=== PATIENT | male | born 1955 | race Caucasian/White ===

== ENCOUNTER 2018-05-23 11:41 | Emergency (ER) | payer OTHER ==
[~2018-05-23] VITALS: Wt 75.6 kg
[~2018-05-23 11:41] MED LIST: FINA5TAB4 PO; TAMS0.4C2 PO
[2018-05-23 11:50] VITALS: BP 171/105; PULSE 112; RESP 16
--- NOTE | 2018-05-23 11:59 | ERD ---
ER Documentation Chief Complaint Chief Complaint URINE RETENTION, UNABLE TO URINATE HPI The patient is a 62-year-old presenting to the ER because he has been unable to urinate since 2 AM, heart similar symptom previously, denies fever, chills, neck pain, chest pain, abdominal pain, vomiting, diarrhea, constipation. He does not drink, smokes socially Past medical history: BPH, diabetes mellitus, hypertension Past surgical history: None ROS All systems reviewed and are negative except as per history of present illness. Medications Home Meds Active Scripts Tamsulosin Hcl* (Flomax*) 0.4 Mg Cap.er.24h, 0.4 MG PO DAILY, #14 CAP Prov:JAZ PAVON MD 05/23/18 Reported Medications Pravastatin Sodium* (Pravastatin Sodium*) 10 Mg Tablet, 10 MG PO HS, TAB 05/23/18 Sitagliptin* (Januvia*) 50 Mg Tablet, 50 MG PO DAILY, #30 TAB 05/23/18 Lisinopril* (Lisinopril*) 10 Mg Tablet, 10 MG PO DAILY, #30 TAB 05/23/18 Metformin Hcl* (Metformin Hcl*) 1,000 Mg Tablet, 1000 MG PO WITH BREAKFAST DINNE, #60 TAB 05/23/18 Finasteride* (Finasteride*) 5 Mg Tablet, 5 MG PO DAILY, TAB 12/01/13 Discontinued Reported Medications Tamsulosin Hcl* (Tamsulosin Hcl*) 0.4 Mg Cap.er.24h, 0.4 MG PO DAILY, CAP 12/01/13 Allergies Allergies: Coded Allergies: No Known Allergy (Unverified , 11/02/13) PMhx/Soc History of Surgery: No Anesthesia Reaction: No Hx Neurological Disorder: No Hx Respiratory Disorders: No Hx Cardiac Disorders: No Hx Psychiatric Problems: No Hx Miscellaneous Medical Probl: Yes ( RENTENTION) Hx Alcohol Use: No Hx Substance Use: No Hx Tobacco Use: No Physical Exam Vitals Vital Signs Date Temp Pulse Resp B/P (MAP) Pulse Ox O2 O2 Flow FiO2 Time Delivery Rate 05/23/18 97.0 112 16 171/105 98 11:50 (127) Physical Exam Const: No acute distress. Head: Atraumatic. Eyes: Normal Conjunctiva. ENT: Normal External Ears, Nose and Mouth. Neck: Full range of motion. No meningismus. Resp: Clear to auscultation bilaterally. Cardio: Regular rate and rhythm. Abd: Soft, distended urinary bladder, normal bowel sounds, non tender. Skin: No petechiae or rashes. Back: No midline or flank tenderness. Ext: No cyanosis, or edema. Neur: Awake and alert. No focal deficit Psych: Normal Mood and Affect. Results 24 hrs Laboratory Tests Test 05/23/18 12:15 05/23/18 12:28 Bedside Urine pH (LAB) 6.5 6.0 Bedside Urine Protein (LAB) Negative Negative Bedside Urine Glucose (UA) 0.50% 0.50% Bedside Urine Ketones (LAB) Negative Negative Bedside Urine Blood 1+ 2+ Bedside Urine Nitrite (LAB) Negative Negative Bedside Urine Leukocyte Esterase (L Negative Negative Procedures/MDM MEDICAL MAKING DECISION: The patient is a 62-year-old male, presenting with acute urinary retention, was treated with a Galdamez catheter that drained about 700 cc of urine with spontaneous relief. He is stable for outpatient follow-up. He was discharged with a leg bag The differential diagnoses considered include but are not limited to BPH, prostatitis, urethral stricture, kidney stones Departure Diagnosis: Primary Impression: Retention of urine Condition: Good Comments He was discharged with Flomax I discussed the findings with the patient. I advised the patient to follow-up with the on-call urologist Dr. Christian in about 2-3 days, sooner if needed and re turn if any concern. Disclaimer: Inadvertent spelling and grammatical errors are likely due to EHR/dictation software use and do not reflect on the overall quality of patient care. Also, please note that the electronic time recorded on this note does not necessarily reflect the actual time of the patient encounter. JAZ PAVON MD May 23, 2018 11:59
[2018-05-23] MEDS ORDERED: SITA50TA2 PO (12:21)
[2018-05-23] MEDS ORDERED: METF100010 PO (12:21)
[2018-05-23] MEDS ORDERED: PRAV10TA43 PO (12:21)
[2018-05-23] MEDS ORDERED: LISI10TA2 PO (12:21)
[2018-05-23] MEDS ORDERED: TAMS-14 PO (12:28)
== END 2018-05-23 13:22 | disposition home or self-care (01) ==
LOC: E/R 11:41
DX: R33.9 Retention of urine, unspecified (principal)
CPT/HCPCS: 51702; 81003; Z7502

== ENCOUNTER 2018-06-05 10:11 | Emergency (ER) | payer OTHER ==
[~2018-06-05] VITALS: Ht 167.6 cm; Wt 73.4 kg
[~2018-06-05 10:11] MED LIST changes: +LISI10TA2 PO; +METF100010 PO; +PRAV10TA43 PO; +SITA50TA2 PO; +TAMS-14 PO; -TAMS0.4C2 PO
[2018-06-05 10:17] VITALS: Ht 167.6 cm; Wt 73.4 kg
--- NOTE | 2018-06-05 11:20 | ERD ---
ER Documentation Chief Complaint Chief Complaint Complains of problems with sanchez cath Hx of prostate problems HPI This is a 62-year-old male who is here for Sanchez catheter change. The patient states he had a Sanchez catheter for 2 months. Is there because of BPH. He cannot see his urologist till August. I will refer him to urologist. He saying that he is urinating around the catheter ROS All systems reviewed and are negative except as per history of present illness. Medications Home Meds Active Scripts Tamsulosin Hcl* (Flomax*) 0.4 Mg Cap.er.24h, 0.4 MG PO DAILY, #14 CAP Prov:JAZ PAVON MD 05/23/18 Reported Medications Pravastatin Sodium* (Pravastatin Sodium*) 10 Mg Tablet, 10 MG PO HS, TAB 05/23/18 Sitagliptin* (Januvia*) 50 Mg Tablet, 50 MG PO DAILY, #30 TAB 05/23/18 Lisinopril* (Lisinopril*) 10 Mg Tablet, 10 MG PO DAILY, #30 TAB 05/23/18 Metformin Hcl* (Metformin Hcl*) 1,000 Mg Tablet, 1000 MG PO WITH BREAKFAST DINNE, #60 TAB 05/23/18 Finasteride* (Finasteride*) 5 Mg Tablet, 5 MG PO DAILY, TAB 12/01/13 Allergies Allergies: Coded Allergies: No Known Allergy (Unverified , 11/02/13) PMhx/Soc History of Surgery: No Anesthesia Reaction: No Hx Neurological Disorder: No Hx Respiratory Disorders: No Hx Cardiac Disorders: No Hx Psychiatric Problems: No Hx Miscellaneous Medical Probl: Yes (prostate problems) Hx Alcohol Use: No Hx Substance Use: No Hx Tobacco Use: No Smoking Status: Never smoker FmHx Family History: No coronary disease Physical Exam Vitals Vital Signs Date Temp Pulse Resp B/P (MAP) Pulse Ox O2 O2 Flow FiO2 Time Delivery Rate 06/05/18 98.5 132 20 131/81 96 10:17 (98) Physical Exam Const: No acute distress Head: Atraumatic Eyes: Normal Conjunctiva ENT: Normal External Ears, Nose and Mouth. Neck: Full range of motion. No meningismus. Resp: Clear to auscultation bilaterally Cardio: Regular rate and rhythm, no murmurs Abd: Soft, non tender, non distended. Normal bowel sounds, catheter in place Skin: No petechiae or rashes Back: No midline or flank tenderness Ext: No cyanosis, or edema Neur: Awake and alert Psych: Normal Mood and Affect Procedures/MDM We will change Sanchez catheter to a size larger. Will follow up with urologist Departure Diagnosis: Primary Impression: Complication of Sanchez catheter Encounter type: initial encounter Qualified Codes: T83.9XXA - Unspecified complication of genitourinary prosthetic device, implant and graft, initial encounter Additional Impression: Urinary catheter (Sanchez) change required Condition: Stable Patient Instructions: Sanchez Catheter, Care Referrals: SOPHIE HUFFMAN MD, APOSTOLOS A. DO Jun 05, 2018 11:20
[2018-06-05 12:04] VITALS: BP 135/78; PULSE 76; RESP 19
== END 2018-06-05 12:05 | disposition home or self-care (01) ==
LOC: E/R 10:11
DX: T83.9XXA Unspecified complication of genitourinary prosthetic device, implant and graft, initial encounter (principal); Y73.2 Prosthetic and other implants, materials and accessory gastroenterology and urology devices associated with adverse incidents; Z46.6 Encounter for fitting and adjustment of urinary device; Z79.84 Long term (current) use of oral hypoglycemic drugs
CPT/HCPCS: 51702; Z7502; Z7610

== ENCOUNTER 2018-07-03 09:56 | Emergency (ER) | payer OTHER ==
[~2018-07-03] VITALS: Ht 172.7 cm; Wt 73.6 kg
[2018-07-03 09:58] VITALS: Ht 172.7 cm; Wt 73.6 kg
[2018-07-03] MEDS ORDERED: CIPR500T4 PO ×2 (10:36→11:08)
--- NOTE | 2018-07-03 10:39 | ERD ---
ER Documentation Chief Complaint Chief Complaint wants sanchez cath removed HPI 62-year-old male presents the emergency part requesting to remove the Sanchez catheter. Patient had a Sanchez catheter in place for approximately a month for an episode of urinary retention. He reports no fevers or chills. He reports some foul- smelling urine from the catheter. He reports no flank pain or vomiting. Patient's been taking his prostate medications without difficulty. ROS All systems reviewed and are negative except as per history of present illness. Medications Home Meds Active Scripts Ciprofloxacin Hcl* (Ciprofloxacin Hcl*) 500 Mg Tablet, 500 MG PO BID for 7 Days, TAB Prov:TIFFANY JUDGE 07/03/18 Tamsulosin Hcl* (Flomax*) 0.4 Mg Cap.er.24h, 0.4 MG PO DAILY, #14 CAP Prov:JAZ PAVON MD 05/23/18 Reported Medications Pravastatin Sodium* (Pravastatin Sodium*) 10 Mg Tablet, 10 MG PO HS, TAB 05/23/18 Sitagliptin* (Januvia*) 50 Mg Tablet, 50 MG PO DAILY, #30 TAB 05/23/18 Lisinopril* (Lisinopril*) 10 Mg Tablet, 10 MG PO DAILY, #30 TAB 05/23/18 Metformin Hcl* (Metformin Hcl*) 1,000 Mg Tablet, 1000 MG PO WITH BREAKFAST DINNE, #60 TAB 05/23/18 Finasteride* (Finasteride*) 5 Mg Tablet, 5 MG PO DAILY, TAB 12/01/13 Allergies Allergies: Coded Allergies: No Known Allergy (Unverified , 11/02/13) PMhx/Soc History of Surgery: No Anesthesia Reaction: No Hx Neurological Disorder: No Hx Respiratory Disorders: No Hx Cardiac Disorders: No Hx Psychiatric Problems: No Hx Miscellaneous Medical Probl: Yes (prostate problems, DM) Hx Alcohol Use: No Hx Substance Use: No Hx Tobacco Use: Yes Smoking Status: Current every day smoker Physical Exam Vitals Vital Signs Date Temp Pulse Resp B/P (MAP) Pulse Ox O2 O2 Flow FiO2 Time Delivery Rate 07/03/18 97.7 100 19 152/76 96 09:58 (101) Physical Exam General: well developed, well nourished, in no distress. Neuro: Normal speech, gait, balance Abdomen: Soft, nontender, no distended bladder. : Indwelling Sanchez catheter, with drainage of cloudy smelling urine. Procedures/MDM Patient was taken to a room, seen and examined Medical decision m[age]-year-old male presents the emergency department for removal of his urinary catheter. After removal of the Sanchez catheter, he has been able to urinate. He has evidence of what appears to be a urinary tract infection related to the catheter I will be placing him on antibiotics. He appears comfortable and clinically well and is already taking medications for his prostate and appears appropriate for outpatient referral to urology. Departure Diagnosis: Primary Impression: Complication of Sanchez catheter Condition: Stable Patient Instructions: Urinary Retention, Male Referrals: SOPHIE HUFFMAN MD Additional Instructions: return here immediately for another catheter if you have trouble urinating TIFFANY JUDGE Jul 03, 2018 10:39
[2018-07-03 11:23] VITALS: BP 142/76; PULSE 76; RESP 16
== END 2018-07-03 11:35 | disposition home or self-care (01) ==
LOC: E/R 09:56
DX: T83.098A Other mechanical complication of other urinary catheter, initial encounter (principal); E11.9 Type 2 diabetes mellitus without complications; F17.210 Nicotine dependence, cigarettes, uncomplicated; Y73.2 Prosthetic and other implants, materials and accessory gastroenterology and urology devices associated with adverse incidents; Z79.84 Long term (current) use of oral hypoglycemic drugs
CPT/HCPCS: 81001; 87086; Z7502; 99283

== ENCOUNTER 2018-09-23 06:09 | Day surgery (SDC) | payer OTHER ==
[~2018-09-23] VITALS: Ht 172.7 cm; Wt 75.9 kg
[2018-09-23] VITALS (17 sets, daily range): BP systolic 119–152; BP diastolic 64–90; PULSE 72–94; RESP 10–23; Ht 172.7 cm; Wt 75.9 kg
[~2018-09-23 06:09] MED LIST changes: +CEFAZOLIN 2 GM/50 ML (PMX) 50 ML IVPB ONE; +CIPR500T4 PO; +SOD CHLORIDE 0.9% 1,000 ML IV SCH
[2018-09-23] MEDS ORDERED: ALBUTEROL 0.083% (NEB) 2.5 MG/3 ML AMP HHN STA (08:08)
--- NOTE | 2018-09-23 08:15 | PREAC ---
Date/Time of Note Date/Time of Note DATE: 09/23/18 TIME: 08:13 Anesthesia Eval and Record Evaluation Time Pre-Procedure Interview DATE: 09/23/18 TIME: 08:13 Age 62 Sex male NPO: 8 hrs Preoperative diagnosis right inguinal hernia Planned procedure inguinal hernia repair Past Medical History Past Medical History: Includes Cardio: HTN Endo: Diabetes Pulm: Smoking Hx Renal: BPH Surgery & Anesthesia Issues No known issue Meds Anticoagulation: No Beta Brian within 24 hr: No Reason Beta Brian not given: Pt. not on B-Brian Active Scripts Tamsulosin Hcl* (Flomax*) 0.4 Mg Cap.er.24h, 0.4 MG PO DAILY, #14 CAP Prov:JAZ PAVON MD 05/23/18 Reported Medications Sitagliptin* (Januvia*) 50 Mg Tablet, 50 MG PO DAILY, #30 TAB 05/23/18 Metformin Hcl* (Metformin Hcl*) 1,000 Mg Tablet, 1000 MG PO WITH BREAKFAST DINNE, #60 TAB 05/23/18 Finasteride* (Finasteride*) 5 Mg Tablet, 5 MG PO DAILY, TAB 12/01/13 Discontinued Reported Medications Pravastatin Sodium* (Pravastatin Sodium*) 10 Mg Tablet, 10 MG PO HS, TAB 05/23/18 Lisinopril* (Lisinopril*) 10 Mg Tablet, 10 MG PO DAILY, #30 TAB 05/23/18 Discontinued Scripts Ciprofloxacin Hcl* (Ciprofloxacin Hcl*) 500 Mg Tablet, 500 MG PO BID for 7 Days, TAB Prov:TIFFANY JUDGE 07/03/18 Ciprofloxacin Hcl* (Ciprofloxacin Hcl*) 500 Mg Tablet, 500 MG PO BID for 7 Days, TAB Prov:TIFFANY JUDGE 07/03/18 Current Medications Sodium Chloride 1,000 ml @ 75 mls/hr [id number] IV Last administered on 09/23/18at 07:35; Admin Dose 75 MLS/HR; Start 09/23/18 at 06:00; Stop 09/23/18 at 18:00 Meds reviewed: Yes Allergies Coded Allergies: No Known Allergy (Unverified , 09/23/18) Allergies Reviewed: Yes Labs/Studies Labs Reviewed: Reviewed by anesthesiologist test: N/A Pre-procedure Exam Last vitals Vital Signs Date Temp Pulse Resp B/P (MAP) Pulse Ox O2 O2 Flow FiO2 Time Delivery Rate 09/23/18 97.8 77 18 142/84 94 Room Air 06:59 (103) Airway: Adequate mouth opening, Adequate thyromental dist Mallampati: Mallampati III Teeth: Normal Lung: Normal Heart: Normal ASA Physical Status ASA physical status: 3 Emergency: None Pre-operative Attestations Prior to commencing anesthesia and surgery, the patient was re-evaluated, there was verification of: *The patient's identity *The results of appropriate recent lab work and preoperative vital signs *The above evaluation not changing prior to induction *Anesthetic plan, risk benefits, alternative and complications discussed with patient/family; questions answered; patient/family understands, accepts and wishes to proceed. MESSI ALANIS DO September 23, 2018 08:15
[2018-09-23] MEDS ORDERED: MIDAZOLAM 1 MG/ML 2 ML INJ ONE (08:20)
[2018-09-23] MEDS ORDERED: PROPOFOL 20 ML ONE (08:20)
[2018-09-23] MEDS ORDERED: LIDOCAINE 1% (MDV) 20 ML INJ ONE (08:21)
[2018-09-23] MEDS ORDERED: ROPIVACAINE 0.5 % 30 ML VIAL ONE (08:21)
[2018-09-23] MEDS ORDERED: ONDANSETRON 4 MG INJ ONE (08:26)
[2018-09-23] MEDS ORDERED: CEFAZOLIN 1 GM INJ ONE (08:26)
[2018-09-23] MEDS ORDERED: POLYMYXIN/BACITRACIN 1L IRRIG ONE (08:46)
[2018-09-23] MEDS ORDERED: EPHEDrine 25 MG/5 ML SYG ONE (08:55)
[2018-09-23] MEDS ORDERED: PHENYLephrine (100 MCG/ML) 10ML SYG ONE (08:56)
[2018-09-23] MEDS ORDERED: KETOROLAC 30 MG INJ ONE (09:21)
--- NOTE | 2018-09-23 09:35 | OPR ---
Date/Time of Note Date/Time of Note DATE: 09/23/18 TIME: 09:32 Operative Report Procedure Date: September 23, 2018 Preoperative Diagnosis incarcerated right inguinal hernia Postoperative Diagnosis same Operation/Procedure Performed open right incarcerated inguinal hernia repair with ultrapro plug hernia system mesh Surgeon see signature line 3D Designer none Anesthesia Type: general Estimated Blood Loss: 0 - 10 ml's Transfusion none Specimen none Grafts/Implants none Complications none Pt Condition Post Procedure: stable Indications This is a 62-year-old male with a right incarcerated inguinal hernia. He requires surgical repair. Risks alternatives benefits and personal were discussed the patient. Patient expressed understanding and consents to the operation. Procedure Description Patient is taken to the OR and prepped and draped in usual sterile fashion. Surgical time was performed. IV antibiotics given. Right inguinal oblique incision was made with the 10 blade. Dissection with cautery was carried down to the external oblique fascia. Externally fascia is open with a 15 blade. This incision was extended medial fairly lateral sparely with Metzenbaum scissors. Cord structures were identified and encircled with a Spray drain. Incarcerated indirect inguinal hernia was then identified and manually reduced. This area was then bolstered with the disc portion of the ultra pro hernia system mesh. The disc is secured in place the running 0 Prolene from the pubic tubercle along the shelving edge of inguinal ligament. Superiorly the disc is secured to enter oblique with interrupted 3-0 Vicryl. Onlay mesh was secured in a similar fashion with a running 0 Prolene from the pubic tubercle along the shelving single limit. Straps are created reapproximate around the cord struc tures to re-create the inguinal ring with interrupted 0 Prolene. Onlay mesh was secured to enter oblique with interrupted 3-0 Vicryl. Externally fascia is closed with running 3-0 Vicryl. Lisandro's fascia was closed with interrupted 3-0 Vicryl. Skin was closed using inzorb observable skin stapler. A tap block was provided by the anesthesiologist. Dry dressings were applied. Lakeisha OCHOA September 23, 2018 09:35
--- NOTE | 2018-09-23 09:51 | PAC ---
Date/Time of Note Date/Time of Note DATE: 09/23/18 TIME: 09:51 Post-Anesthesia Notes Post-Anesthesia Note Last documented vital signs Vital Signs Date Temp Pulse Resp B/P (MAP) Pulse Ox O2 O2 Flow FiO2 Time Delivery Rate 09/23/18 98.0 94 19 136/86 94 Nasal 3.0 09:38 (103) Cannula Activity: WNL Respiratory function: WNL Cardiovascular function: WNL Mental status: Baseline Pain reasonably controlled: Yes Hydration appropriate: Yes Nausea/Vomiting absent: Yes MESSI ALANIS DO September 23, 2018 09:51
[2018-09-23] MEDS ORDERED: HYDROCODONE/APAP (5/325) TAB PO ONE (10:00)
[2018-09-23] MEDS ORDERED: OXYCODONE/ACETAMINOPHEN (5/325) TAB PO ONE (10:30)
== END 2018-09-23 11:27 | disposition home or self-care (01) ==
LOC: SDS 06:09
PROVIDERS: ATTEND Surgery
DX: K40.90 Unilateral inguinal hernia, without obstruction or gangrene, not specified as recurrent (principal); I10 Essential (primary) hypertension; E11.9 Type 2 diabetes mellitus without complications
CPT/HCPCS: 49507; 82962; J0690; J1885; J2250; J2370; J2405; J2795; J3010; Z7610

== ENCOUNTER 2018-09-23 18:25 | Emergency (ER) | payer OTHER ==
[~2018-09-23] VITALS: Ht 175.3 cm; Wt 77.5 kg
[~2018-09-23 18:25] MED LIST changes: -CEFAZOLIN 2 GM/50 ML (PMX) 50 ML IVPB ONE; -SOD CHLORIDE 0.9% 1,000 ML IV SCH
[2018-09-23 18:31] VITALS: Ht 175.3 cm; Wt 77.5 kg
--- NOTE | 2018-09-23 18:58 | ERD ---
ER Documentation Chief Complaint Chief Complaint recent inguinal hernia sx this AM, urinary retention since 8AM w/ pain HPI 62-year-old male with a recent right inguinal hernia surgery this morning presenting with urinary retention. He was discharged prior to urinating. He does have a history of BPH. He is complaining of suprapubic discomfort that is constant with difficulty urinating. He is denying any dysuria or hematuria. No fevers or chills. No nausea or vomiting. He does complain of pain at his surgical site, which is expected. ROS All systems reviewed and are negative except as per history of present illness. Medications Home Meds Active Scripts Tamsulosin Hcl* (Flomax*) 0.4 Mg Cap.er.24h, 0.4 MG PO DAILY, #14 CAP Prov:JAZ PAVON MD 05/23/18 Reported Medications Sitagliptin* (Januvia*) 50 Mg Tablet, 50 MG PO DAILY, #30 TAB 05/23/18 Metformin Hcl* (Metformin Hcl*) 1,000 Mg Tablet, 1000 MG PO WITH BREAKFAST DINNE, #60 TAB 05/23/18 Finasteride* (Finasteride*) 5 Mg Tablet, 5 MG PO DAILY, TAB 12/01/13 Discontinued Reported Medications Pravastatin Sodium* (Pravastatin Sodium*) 10 Mg Tablet, 10 MG PO HS, TAB 05/23/18 Lisinopril* (Lisinopril*) 10 Mg Tablet, 10 MG PO DAILY, #30 TAB 05/23/18 Discontinued Scripts Ciprofloxacin Hcl* (Ciprofloxacin Hcl*) 500 Mg Tablet, 500 MG PO BID for 7 Days, TAB Prov:TIFFANY JUDGE 07/03/18 Ciprofloxacin Hcl* (Ciprofloxacin Hcl*) 500 Mg Tablet, 500 MG PO BID for 7 Days, TAB Prov:TIFFANY JUDGE 07/03/18 Allergies Allergies: Coded Allergies: No Known Allergy (Unverified , 09/23/18) PMhx/Soc History of Surgery: Yes (STONES REMOVED) Anesthesia Reaction: No Hx Neurological Disorder: No Hx Respiratory Disorders: No Hx Cardiac Disorders: No Hx Psychiatric Problems: No Hx Miscellaneous Medical Probl: No Hx Alcohol Use: No Hx Substance Use: No Hx Tobacco Use: Yes FmHx Family History: No diabetes Physical Exam Vitals Vital Signs Date Temp Pulse Resp B/P (MAP) Pulse Ox O2 O2 Flow FiO2 Time Delivery Rate 09/23/18 98.6 92 19 144/87 96 Room Air 19:30 (106) 09/23/18 90 16 141/87 94 Room Air 19:01 (105) 09/23/18 98.8 114 20 181/88 96 18:31 (119) Physical Exam Const: No acute distress Head: Atraumatic Eyes: Normal Conjunctiva ENT: Normal External Ears, Nose and Mouth. Neck: Full range of motion. No meningismus. Resp: Clear to auscultation bilaterally Cardio: Regular rate and rhythm, no murmurs Abd: Soft, suprapubic fullness with tenderness to palpation, no rebound or guarding. Normal bowel sounds. Surgical dressings clean, dry, intact Skin: No petechiae or rashes Back: No midline or flank tenderness Ext: No cyanosis, or edema Neur: Awake and alert Psych: Normal Mood and Affect Procedures/MDM Patient is presenting with urinary retention after surgery this morning. Vitals are unremarkable. Galdamez was placed with about a liter of urine output. Patient feels significantly better. He will be discharged with a Galdamez with instructions to follow-up in 1 week for removal. Return precautions were given. Galdamez care discussed. Patient's blood pressure was elevated (>120/80) but appears stable without evidence of hypertension emergency or urgency. The patient was counseled about the risks of hypertension and urged to pursue outpatient monitoring and therapy within a week with their primary care physician. Departure Diagnosis: Primary Impression: Retention of urine Condition: Stable EKSRIKANTH CLARK MD September 23, 2018 18:58
[2018-09-23 19:30] VITALS: BP 144/87; PULSE 92; RESP 19
== END 2018-09-23 19:47 | disposition home or self-care (01) ==
LOC: E/R 18:25
DX: R33.9 Retention of urine, unspecified (principal)
CPT/HCPCS: 51702; Z7502

== ENCOUNTER 2018-10-07 18:39 | Emergency (ER) | payer OTHER ==
[~2018-10-07] VITALS: Wt 72.6 kg
[~2018-10-07 18:39] MED LIST changes: -CIPR500T4 PO; -LISI10TA2 PO; -PRAV10TA43 PO
--- NOTE | 2018-10-07 21:38 | ERD ---
ER Documentation Chief Complaint Chief Complaint states decrease urine output in f/c. c/o pain HPI This is a 62-year-old male who presents for decreased urine output, he had a Galdamez catheter placed on September 23. He states that he has been having decreased emptying, he denies fever, he denies nausea or vomiting. Patient has a history of BPH, and he states that he has had the catheter removed in the ED before, and wishes for this to happen today. He denies any fever, denies nausea or vomiting. ROS All systems reviewed and are negative except as per history of present illness. Medications Home Meds Active Scripts Cephalexin* (Keflex*) 500 Mg Capsule, 500 MG PO QID for 7 Days, CAP Prov:INNA HAYNES MD 10/07/18 Tamsulosin Hcl* (Flomax*) 0.4 Mg Cap.er.24h, 0.4 MG PO DAILY, #14 CAP Prov:JAZ PAVON MD 05/23/18 Reported Medications Sitagliptin* (Januvia*) 50 Mg Tablet, 50 MG PO DAILY, #30 TAB 05/23/18 Metformin Hcl* (Metformin Hcl*) 1,000 Mg Tablet, 1000 MG PO WITH BREAKFAST DINNE, #60 TAB 05/23/18 Finasteride* (Finasteride*) 5 Mg Tablet, 5 MG PO DAILY, TAB 12/01/13 Allergies Allergies: Coded Allergies: No Known Allergy (Unverified , 09/23/18) PMhx/Soc History of Surgery: Yes (KIDNEY STONE REMOVAL, R ing HERNIA REPAIR) Anesthesia Reaction: No Hx Neurological Disorder: No Hx Respiratory Disorders: No Hx Cardiac Disorders: Yes (HTN) Hx Psychiatric Problems: No Hx Miscellaneous Medical Probl: Yes (URINARY RETENTION, enlarged prostate) Hx Alcohol Use: No Hx Substance Use: No Hx Tobacco Use: Yes (1 pack daily) Smoking Status: Current every day smoker Physical Exam Vitals Vital Signs Date Temp Pulse Resp B/P (MAP) Pulse Ox O2 O2 Flow FiO2 Time Delivery Rate 10/07/18 96 20 147/90 96 Room Air 22:56 (109) 10/07/18 98.5 94 15 157/104 95 Room Air 21:27 (121) 10/07/18 97.4 116 18 158/92 96 18:48 (114) Physical Exam Const: No acute distress Head: Atraumatic Eyes: Normal Conjunctiva ENT: Normal External Ears, Nose and Mouth. Neck: Full range of motion. No meningismus. Resp: Clear to auscultation bilaterally Cardio: Regular rate and rhythm, no murmurs Abd: Soft, non tender, no rebound or guarding what non distended. Normal bowel sounds Skin: No petechiae or rashes Back: No midline or flank tenderness Ext: No cyanosis, or edema Neur: Awake and alert Psych: Normal Mood and Affect Results 24 hrs Laboratory Tests Test 10/07/18 22:00 Bedside Urine pH (LAB) 5.5 Bedside Urine Protein (LAB) 3+ Bedside Urine Glucose (UA) Negative Bedside Urine Ketones (LAB) Trace Bedside Urine Blood 2+ Bedside Urine Nitrite (LAB) Positive Bedside Urine Leukocyte Esterase (L Trace Current Medications Medications Dose Sig/Kaley Start Time Status Last (Trade) Ordered Route PRN Stop Time Admin Dose Reason Admin Ceftriaxone 50 ml @ ONCE ONCE 10/07/18 DC 10/07/18 Sodium 100 mls/hr IVPB 22:30 22:34 10/07/18 22:59 Sodium 1,000 ml @ Q1H ONCE 10/07/18 10/07/18 Chloride 1,000 mls/hr IV 22:30 22:34 10/07/18 23:29 Procedures/MDM 62-year-old male presents for evaluation of Galdamez catheter. Bladder scan showed 20 cc of urine, and Galdamez catheter appears to be functioning well, his urine dip was nitrite positive suggesting signs of infection, I had an extensive discussion with the patient was spouse regarding the catheter, and shared decision-making was made to remove it. I cautioned him that removing it could cause recurrence of his urinary retention, which the patient is known about with his history of BPH. He understood this and wished to have it removed, states that he would return if he had any other symptoms. He has no back pain, and no other neurologic deficits, at discharge the patient was in no distress, he is given a prescription for Keflex. Departure Diagnosis: Primary Impression: Retention of urine Additional Impression: UTI (urinary tract infection) Urinary tract infection type: site unspecified Hematuria presence: without hematuria Qualified Codes: N39.0 - Urinary tract infection, site not specified Condition: INNA Freeman MD October 07, 2018 21:38
[2018-10-07] MEDS ORDERED: CEFTRIAXONE 1 GM/50 ML (PMX) 50 ML IVPB ONE (22:30)
[2018-10-07] MEDS ORDERED: SOD CHLORIDE 0.9% 1,000 ML IV ONE (22:30)
[2018-10-07] MEDS ORDERED: CEPH-443 PO (23:00)
[2018-10-07 23:44] VITALS: BP 127/91; PULSE 89; RESP 20
== END 2018-10-07 23:48 | disposition home or self-care (01) ==
LOC: E/R 18:39
DX: N39.0 Urinary tract infection, site not specified (principal); I10 Essential (primary) hypertension; R33.9 Retention of urine, unspecified; F17.210 Nicotine dependence, cigarettes, uncomplicated; Z79.84 Long term (current) use of oral hypoglycemic drugs
CPT/HCPCS: 51702; 81003; 87086; 96365; J0696; J7030; Z7502; Z7610